=== PATIENT | male | born 1950 | race Caucasian/White ===

== ENCOUNTER → 2016-09-29 | Day surgery (SDC) | payer MEDICARE ==
[~2016-09-29] MED LIST: IBUP-1027 PO; IV RINGERS,LACTATED 1000ML 1,000 ML IV SCH; LIDOCAINE 2% PF Vial for OR 5 ML VIAL. ONE; PROPOFOL 40 ML IV ONE
[2016-09-29 09:06] VITALS: BP 138/76
--- NOTE | 2016-09-30 15:13 | PATHOLOGY ---
PATHOLOGY REPORT * * * * * * * * FINAL DIAGNOSIS: Colorectal biopsies, rectal polyps: - Hyperplastic polyps. COMMENT: There are no adenomatous changes or evidence of malignancy. (JPM:all; d/t: 09/29/2016) REPORT ELECTRONICALLY SIGNED BY: Luke Corral M.D. DATE/TIME: 09/30/2016 15:12 * * * * * * * * GROSS PATHOLOGY: Received in formalin labeled "Mert Retana, rectal polyps," are four segments of ervin soft tissue measuring 0.9 x 0.7 x 0.1 cm in aggregate dimensions and ranging from 0.2 to 0.9 cm in maximum dimension. The specimen is submitted entirely in cassette A1. (CAA; 09/29/2016) INITIAL CPT CODE(S): A; 19580 Professional services performed [place] [facility] [address] Technical services performed by [facility] at [address] [place] [address]. SPECIMEN(S) RECEIVED: A.Rectal polyps CLINICAL HISTORY: [facility] PATIENT: MERT RETANA /AGE: 210/10/1950 (Age: 65) PATIENT #: [id number] ALT CASE #: SPECIMEN COLLECTION DATE: 09/29/2016 SPECIMEN RECEIVED DATE: 09/29/2016 [facility] - [address] [place] [address] - PHONE: [phone] * * * END OF REPORT * * *
== END ==
LOC: SURG 07:05
PROVIDERS: ATTEND Internal Medicine Gastroenterology
DX: Z12.11 Encounter for screening for malignant neoplasm of colon (principal); K62.1 Rectal polyp; K64.1 Second degree hemorrhoids; Z72.89 Other problems related to lifestyle; F17.210 Nicotine dependence, cigarettes, uncomplicated
CPT/HCPCS: 45380; 88305; J2704